=== PATIENT | female | born 1995 | race Caucasian/White ===

== ENCOUNTER 2018-07-11 15:31 | Emergency (ER) | payer SELFPAY ==
[~2018-07-11] VITALS: Ht 154.9 cm; Wt 51.0 kg
[2018-07-11 16:28] LABS: BASOPHILS # (AUTO) 0.03 x10^3/uL (0-0.1); BASOPHILS % (AUTO) 0 % (0-1); EOSINOPHILS # (AUTO) 0.01 x10^3/uL (0-0.4); EOSINOPHILS % (AUTO) 0 % (1-7); LYMPHOCYTES # (AUTO) 1.62 x10^3/uL (1-3.4); LYMPHOCYTES % (AUTO) 18 % (22-44); MD NO; MEAN CORPUSCULAR HEMOGLOBIN 24.5 pg (27.0-34.8); MEAN CORPUSCULAR VOLUME 74.1 fL (80-100); MEAN PLATELET VOLUME 8.7 fL (7.4-10.4); MONOCYTES # (AUTO) 0.27 x10^3/uL (0.2-0.8); MONOCYTES % (AUTO) 3 % (2-9); NEUTROPHILS # (AUTO) 6.97 x10^3/uL (1.8-6.8); NEUTROPHILS % (AUTO) 78 % (42-75); PLATELET COUNT 284 x10^3/uL (130-400); RED BLOOD COUNT 6.22 x10^6/uL (3.82-5.3); RED CELL DISTRIBUTION WIDTH 13.5 % (9.6-15.2)
[2018-07-11] MEDS ORDERED: ONDANSETRON ODT 4 MG PO ONE (16:30)
[2018-07-11] MEDS ORDERED: ALBUTEROL/IPRATROPIUM 2.5MG/0.5MG, 3 ML NPPB SCH (16:30)
[2018-07-11] MEDS ORDERED: SODIUM CHLORIDE FLUSH 10ML SYR IVF ONE (16:30)
[2018-07-11] MEDS ORDERED: ACETAMINOPHEN 500 MG TABLET PO ONE (16:30)
[2018-07-11] MEDS ORDERED: SODIUM CHLORIDE 0.9% 1,000ML IVBOLUS ONE ×2 (16:30→17:30)
[2018-07-11] MEDS ORDERED: ALBUTEROL/IPRATROPIUM 2.5MG/0.5MG, 3 ML ONE (16:34)
[2018-07-11] MEDS ORDERED: ONDANSETRON ODT 4 MG ONE (16:36)
[2018-07-11] MEDS ORDERED: ACETAMINOPHEN 500 MG TABLET ONE (16:36)
[2018-07-11 16:41] LABS: ANION GAP 8 mmol/L (5-15); CALCIUM 9.8 mg/dL (8.5-10.1); CHLORIDE 108 mmol/L (98-107); CREATININE 0.68 mg/dL (0.55-1.02)
[2018-07-11] MEDS ORDERED: INHALER (17:23)
[2018-07-11 17:48] LABS: MICROSCOPIC INDICATED
[2018-07-11 18:03] LABS: CULTURE INDICATED? YES
[2018-07-11 18:45] VITALS: BP 142/72
== END 2018-07-11 18:49 | disposition home or self-care (01) ==
LOC: ED 18:43
DX: J45.31 Mild persistent asthma with (acute) exacerbation (principal); J31.0 Chronic rhinitis
CPT/HCPCS: 36415; 71045; 80048; 81001; 82040; 83605; 84145; 85025; 85379; 87040; 87086; 93005; 94640; 96360; 96361; 99285; J7030; J7620